=== PATIENT | male | born 2000 | race Caucasian/White ===

== ENCOUNTER 2023-06-20 18:03 | Inpatient (IN) | payer BC ==
[~2023-06-20] VITALS: Ht 188 cm; Wt 129.4 kg
[2023-06-20 19:08] LABS: BASOPHILS ABSOLUTE AUTO 0.02 K/mm3 (0.00-0.23); BASOPHILS PERCENT AUTO 0 % (0-2); EOSINOPHILS ABSOLUTE AUTO 0.01 K/mm3 (0.00-0.68); EOSINOPHILS PERCENT AUTO 0 % (0-6); Hematocrit 41.7 % (37.0-53.0); IMMATURE GRAN ABSOLUTE AUTO 0.04 K/mm3 (0.00-0.10); IMMATURE GRAN PERCENT AUTO 0 % (0-1); LYMPHOCYTES ABSOLUTE AUTO 1.66 K/mm3 (0.84-5.20); LYMPHOCYTES PERCENT AUTO 15 % (21-46); MONOCYTES ABSOLUTE AUTO 0.53 K/mm3 (0.16-1.47); MONOCYTES PERCENT AUTO 5 % (4-13); Mean Corpuscular HGB 28.7 pg (26.0-34.0); Mean Corpuscular Volume 80 fL (80-100); Mean Platelet Volume 10.3 fL (9.1-12.4); NEUTROPHILS ABSOLUTE AUTO 9.18 K/mm3 (1.96-9.15); NEUTROPHILS PERCENT AUTO 80 % (41-73); Platelet Count 203 K/mm3 (150-400); RDW Coefficient Variation 12.1 % (11.7-14.2); RDW Standard Deviation 34.8 fL (35.1-46.3); Red Blood Cell Count 5.23 M/mm3 (4.30-5.90); White Blood Cell Count 11.44 K/mm3 (4.00-11.30)
[2023-06-20 19:10] LABS: Alanine Aminotransfer (ALT/SGP 51 U/L (12-78); Albumin, Blood 4.5 g/dL (3.4-5.0); Albumin/Globulin Ratio 1.4 (0.8-1.8); Alk Phos 61 U/L (50-136); Anion Gap 11 mmol/L (6-16); Aspartate Aminotrans (AST/SGOT 39 U/L (12-37); Bilirubin, Total 1.9 mg/dL (0.1-1.0); Blood Urea Nitrogen 19 mg/dL (8-24); Bun/Creatinine Ratio 17.1 (12.0-20.0); CO2, Blood 19 mmol/L (21-32); Calcium, Blood 9.4 mg/dL (8.5-10.1); Chloride, Blood 108 mmol/L (98-108); Creatinine, Blood 1.11 mg/dL (0.60-1.20); Globulin, Blood 3.2 g/dL (2.2-4.0); Glomerular Filtration Rate 95 (60-); Glucose, Blood 126 mg/dL (70-99); Sodium, Blood 138 mmol/L (136-145); Total Protein, Blood 7.7 g/dL (6.4-8.2)
[2023-06-20 21:20] LABS: Ethanol (Alcohol), Blood, Med <3 mg/dL; Magnesium, Blood 1.3 mg/dL (1.6-2.4)
[2023-06-20 22:59] VITALS: BP 129/70
[2023-06-21] VITALS (13 sets, daily range): BP systolic 117–148; BP diastolic 59–83
--- NOTE | 2023-06-21 06:04 | NUR ---
PT ARRIVED TO THE FLOOR AT 2235, PT ABLE TO AMBULATE INDEPENDENTLY FROM [facility] TO HOSPITAL BED. PT ADMITTED FOR CHOLECYSTITIS. PT SCHEDULED TO HAVE A LAP ЕКАТЕРИНА THIS MORNING. PT A&O x4, VSS, AFEBRILE, PT ON RA. PT ENCOURAGED TO CALL FOR ASSISTANCE WITH GETTING UP FOR BRP. IV FLUIDS RUNNING LR AT 100mL/HR. PT RECEIVED IV MAG SULFATE AND POTASSIUM CHLORIDE ON THIS SHIFT. POTASSIUM LAB VALUE AT 3.0 ON 06/20/23. PT C/O PAIN TO RUQ. PAIN MANAGED WITH PRN IV DILAUDID, WITH GOOD RESULTS. PT PLEASANT AND COOPERATIVE WITH CARE PROVIDED. CALL LIGHT WITHIN REACH, WCTM.
[2023-06-21 06:44] LABS: BASOPHILS ABSOLUTE AUTO 0.02 K/mm3 (0.00-0.23); BASOPHILS PERCENT AUTO 0 % (0-2); EOSINOPHILS ABSOLUTE AUTO 0.07 K/mm3 (0.00-0.68); EOSINOPHILS PERCENT AUTO 1 % (0-6); Hematocrit 40.8 % (37.0-53.0); Hemoglobin 13.7 g/dL (13.5-17.5); IMMATURE GRAN ABSOLUTE AUTO 0.04 K/mm3 (0.00-0.10); IMMATURE GRAN PERCENT AUTO 0 % (0-1); LYMPHOCYTES ABSOLUTE AUTO 2.72 K/mm3 (0.84-5.20); LYMPHOCYTES PERCENT AUTO 28 % (21-46); MONOCYTES ABSOLUTE AUTO 0.86 K/mm3 (0.16-1.47); MONOCYTES PERCENT AUTO 9 % (4-13); Mean Corpuscular HGB 28.1 pg (26.0-34.0); Mean Corpuscular HGB Conc 33.6 g/dL (31.5-36.5); Mean Corpuscular Volume 84 fL (80-100); Mean Platelet Volume 10.2 fL (9.1-12.4); NEUTROPHILS PERCENT AUTO 62 % (41-73); Platelet Count 153 K/mm3 (150-400); RDW Coefficient Variation 12.6 % (11.7-14.2); RDW Standard Deviation 38.8 fL (35.1-46.3); Red Blood Cell Count 4.87 M/mm3 (4.30-5.90); White Blood Cell Count 9.71 K/mm3 (4.00-11.30)
[2023-06-21 06:58] LABS: International Normalized Ratio 1.04; Prothrombin Time Results 10.9 Sec (9.7-11.5)
[2023-06-21 07:18] LABS: Albumin, Blood 3.4 g/dL (3.4-5.0); Albumin/Globulin Ratio 1.2 (0.8-1.8); Bilirubin, Total 2.7 mg/dL (0.1-1.0); Bun/Creatinine Ratio 12.3 (12.0-20.0); Calcium, Blood 8.1 mg/dL (8.5-10.1); Creatinine, Blood 0.98 mg/dL (0.60-1.20); Globulin, Blood 2.9 g/dL (2.2-4.0); Magnesium, Blood 2.3 mg/dL (1.6-2.4); Potassium, Blood 3.8 mmol/L (3.5-5.5); Total Protein, Blood 6.3 g/dL (6.4-8.2)
[2023-06-21 08:23] LABS: Bilirubin, Direct 0.3 mg/dL (0.0-0.3); Bilirubin, Indirect 2.3 mg/dL (0.1-0.7); Bilirubin, Total 2.6 mg/dL (0.1-1.0)
--- NOTE | 2023-06-21 10:22 | NUR ---
PATIENT OFF UNIT TO OR AT 1015 VIA HIS BED. FATHER IN WAITING AREA.
--- NOTE | 2023-06-21 11:10 | NUR ---
PT ARRIVED TO PACU FROM 361 VIA BED AT 1020. SMILING & PLEASANT. SURGICAL PACK COMPLETE. AFEBRILE/VSS. LR NOW INFUSING TKO PER ORDER. SURGICAL HAT/BP CUFF/PAS SLEEVES PLACED. PT ABD SHAVED FOR ROBOTIC LAP ЕКАТЕРИНА. DR YORK AND DR SUMNER SPOKE w/PATIENT AND PAPER WORK NOW COMPLETE. TRANFERED TO ROBOTIC 1 VIA GURNEY AT 1110 IN STABLE CONDITION.
[2023-06-21] MEDS ORDERED: OXYC5 PO (16:23)
--- NOTE | 2023-06-21 16:57 | NUR ---
PATIENT DISCHARGED TO HOME ACCOMPANIED BY HIS FATHER WHO IS DRIVING. IV SALINE LOCKS REMOVED WITHOUT INCIDENT. PT ABLE TO TOLERATE HIS LATE LUNCH, PO FLUIDS. HE STATED PAIN IS CONTROLLED, GAVE DOSE OF OXYCODONE JUST PRIOR TO LEAVING HOSPITAL. INSTRUCTED PT HOW TO C&DB AND SPLINT WITH A PILLOW TO PREVENT POST OP PNA; GAVE ADEQUATE RETURN DEMONSTRATION. ABLE TO DRESS HIMSELF WITHOUT ASSISTANCE, AMBULATING WELL, BUT EDUCATED HIM TO TAKE IT SLOW D/T NARCOTICS. VERBALIZED UNDERSTANDING OF D/C INSTRUCTIONS. OFF UNIT VIA W/C AT 1652. NO PERSONAL BELONGINGS LEFT BEHIND IN ROOM.
== END 2023-06-21 16:55 | disposition home or self-care (01) | DRG 419 ==
LOC: ER 18:03 → ERHOLD 21:29 → MEDS 21:29
PROVIDERS: Emergency Medicine; Surgery; ADMIT Student in an Organized Health Care Education/Training Program
PROC: HZ2ZZZZ Detoxification Services for Substance Abuse Treatment (ICD-10-PCS; 2023-06-20)
PROC: 8E0W4CZ Robotic Assisted Procedure of Trunk Region, Percutaneous Endoscopic Approach (ICD-10-PCS; 2023-06-21)
PROC: 0FT44ZZ Resection of Gallbladder, Percutaneous Endoscopic Approach (ICD-10-PCS; principal; 2023-06-21 12:15)
DX: K81.0 Acute cholecystitis (principal); E87.6 Hypokalemia; E83.42 Hypomagnesemia; Y90.0 Blood alcohol level of less than 20 mg/100 ml; F10.10 Alcohol abuse, uncomplicated; F12.90 Cannabis use, unspecified, uncomplicated; E80.6 Other disorders of bilirubin metabolism; I10 Essential (primary) hypertension; D72.829 Elevated white blood cell count, unspecified; E80.4 Gilbert syndrome; E66.9 Obesity, unspecified; Z68.36 Body mass index [BMI] 36.0-36.9, adult
CPT/HCPCS: 36415; 74177; 74181; 76705; 80053; 82247; 82248; 83690; 83735; 85025; 85610; 88304; 94762; 96361; 96374; 96375; 99285-25; A9270; J1100; J1170; J1885; J2250; J2270; J2405; J2704; J3010; J3411; J3475; J3480; J7030; J7050; J7120; Q9967